=== PATIENT | male | born 1950 ===

== ENCOUNTER 2024-03-23 08:46 | Outpatient (AMB) | payer MEDICARE, SELFPAY ==
--- NOTE | 2024-03-23 08:54 | A.OFFVIS_ITS ---
Vital Signs 03/23/24 08:55 Height 5 ft 7 in Weight 161 lb BMI 25.2 BP 133/79 Blood Pressure Location Lt brachial Position Sitting Respiration 14 Pulse 77 Pulse Source Pulse Oximeter Pulse Oximetry (%) 97 Oxygen Delivery Method Room Air Intake Visit Reasons: chronic neck pain Allergies No Known Allergies Allergy (Verified 03/23/24 08:56) Medication List - Last Reconciled 03/23/24 by July Herring LPN aspirin (Adult Aspirin Regimen) 81 mg PO DAILY dapagliflozin propanediol (Farxiga) 10 mg PO DAILY losartan 50 mg PO DAILY metformin 1,000 mg PO DAILY metoprolol tartrate 150 mg PO Q12H rosuvastatin 5 mg PO DAILY HPI HPI chronic neck pain: Details: 73-year-old male who presents today to the office for an evaluation of chronic neck pain. He has stenosis and DJD, and he underwent a C5-6 fusion of two discs [place] [address] Randle. He had a plate, two screws, and bone grafts. He has a history of high cholesterol, diabetes, and hypertension. She was started on Farxiga for diabetes mellitus. He has neck pain for more than 10 years. His pain score is usually between 4- 7/10 in intensity. He is unable to sleep normally. His pain is usually worse at the end of the day. He denies any radiating pain down his arm. He has not had any nerve ablation procedure in the past. He has tried acupuncture at [facility] in [place] every week for two years. He had 18 injections in his neck by Dr. Cuellar and another doctor at [place]. The last shot was six years ago. He was taking oxycodone for two years and stopped on 12/18/23. FOR[facility] Medical History (Updated 03/23/24 @ 09:54 by Darnell Mitchell MD) TMJ syndrome Statin not tolerated Sleep disorder Sleep apnea Pigmented skin lesion Panic attack Low back pain HTN (hypertension) Hyperlipidemia History of myocardial infarction Generalized anxiety disorder Diabetes mellitus Cyst of kidney, acquired Coronary artery disease Chronic pain Cervical disc disorder with radiculopathy Obesity (BMI 30.0-34.9) Adverse effect of biological substance Abnormal glucose level Surgical History (Updated 03/23/24 @ 06:56 by Gennaro Sullivan) S/P CABG x 3 Review of Systems Const All systems reviewed & are unremarkable except as noted in HPI and below Physical Exam Vital Signs: Last Vital Signs Pulse 77 03/23/24 08:55 Resp 14 03/23/24 08:55 BP 133/79 03/23/24 08:55 Pulse Ox 97 03/23/24 08:55 Oxygen Delivery Method Room Air 03/23/24 08:55 BMI result Body Mass Index 25.2 General: Appears afebrile. Alert and oriented. Mood and affect appropriate. Follows and participates in conversation appropriately. Respiratory effort is unlabored. Able to transition from sit to stand unassisted. Ambulates with bilaterally normal heel strike and toe off. Cervical extension reproduces pain. Facet loading is positive on the right. Results Reviewed Results Reviewed: No imaging is available for review. Assessment & Plan Assessment & Plan (1) Cervical spondylosis: Code(s): M47.812 - Spondylosis without myelopathy or radiculopathy, cervical region Category: Medical Plan Discussed peripheral nerve stimulator vs. radiofrequency ablation as a possible treatment options. I informed him that PNS is preferable but we still offer RFA in case of patient's preference or insurance coverage. We will schedule him for a diagnostic C3-C4-C5 medial branch blocks as a first step and then potentially follow up with RFA vs. PNS trial of the right C4/C5 medial branch nerves, depending on insurance authorization. Discussed the risks and benefits of the procedure with the patient in detail. All questions were answered. The patient is on board with the plan. Justification for interventional therapy: ? Patient with average pain > 6/10 ? Patient has exhausted conservative therapy, including physical therapy, medications, acupuncture as well as surgical treatment . Patient has a good understanding of their pain condition and has appropriate mental and social support Scribed for Dr. Mitchell by Gennaro Sullivan, medical record technician, on 03/23/2024. I, Dr. Mitchell, have personally reviewed and agree with the information entered by the scribe. Coding Level of Care Code New Pt Level 4 (05234) Diagnoses Cervical spondylosis M47.812
[2024-03-23 08:55] VITALS: BP 133/79; PULSE 77; RESP 14; O2SAT 97; BMI 25.2
== END 2024-03-23 09:39 | disposition home or self-care (01) ==
PROVIDERS: PCP Internal Medicine; Visit Provider Internal Medicine
DX: M47.812 Spondylosis without myelopathy or radiculopathy, cervical region (principal)
CPT/HCPCS: 99204

== ENCOUNTER → 2024-03-23 08:46 | Outpatient (BNVA) | payer MEDICARE, SELFPAY | PROVIDERS: PCP Internal Medicine; Visit Provider Internal Medicine | DX: M47.812 Spondylosis without myelopathy or radiculopathy, cervical region (principal) | CPT/HCPCS: 99202 ==